=== PATIENT | female | born 1975 | race Caucasian/White ===

== ENCOUNTER → 2022-05-12 09:11 | Outpatient (CLI) | payer MEDICARE, MEDICAID, SELFPAY ==
--- NOTE | 2022-05-12 09:17 | DI.MRI.S_ITS ---
PROCEDURE: MR HEAD/BRAIN WO/W CON INDICATIONS: LEFT BREAST CANCER TECHNIQUE: Noncontrast axial T1 spin echo, axial T2 fast spin echo, sagittal and axial FLAIR, coronal T2 fast spin echo, axial gradient echo, axial diffusion and ADC through the brain. After the administration of contrast, axial and coronal and sagittal 3D VIBE or T1 spin echo with fat saturation through the brain. COMPARISON: None. FINDINGS: Image quality: Excellent. CSF Spaces: Basal cisterns are patent. No extra-axial fluid collections. Ventricles are normal in size and shape. Brain: No midline shift. No intracranial bleeds or masses. No abnormal intracranial enhancement. The brainstem appears normal. Diffusion-weighted images demonstrate no acute ischemic insults. No chronic ischemic insults. Normal intravascular flow voids are present. Skull and face: Calvarial marrow is normal in signal. Orbits appear normal. Sinuses: Sinuses and mastoids appear clear. IMPRESSION: No masses or abnormal enhancement can be seen. Dictated by: Jose Hernández M.D. on 05/12/2022 at 9:49 Approved by: Jose Hernández M.D. on 05/12/2022 at 9:53
== END ==
PROVIDERS: Referring Provider Internal Medicine Medical Oncology; Visit Provider Internal Medicine Medical Oncology
DX: C50.912 Malignant neoplasm of unspecified site of left female breast; Z17.0 Estrogen receptor positive status [ER+]; C79.51 Secondary malignant neoplasm of bone
CPT/HCPCS: 70553

== ENCOUNTER → 2022-05-17 07:32 | Outpatient (CLI) | payer MEDICARE, MEDICAID, SELFPAY ==
--- NOTE | 2022-05-17 | DI.NM.S_ITS ---
PROCEDURE: NM BONE SCAN WHOLE BODY RADIOPHARMACEUTICAL: 21 mCi Tc-99m MDP IV. INDICATIONS: LEFT BREAST CANCER TECHNIQUE: Delayed whole-body scintigrams were obtained approximately 3-4 hours after intravenous injection of radiotracer. Anterior and posterior views were acquired from vertex to feet. COMPARISON: [facility], CT, CT CHEST ABD PEL W CON, 05/17/2022, 8:36. FINDINGS: Diffuse intense uptake in the region of the right shoulder corresponding to permeative scapular lesion seen on CT with soft tissue component. Focal uptake in the T2 vertebral body corresponding to lytic lesion on CT. Likely degenerative uptake is seen at various joints, around the upper sternum, and contralateral shoulder. Normal expected radiotracer excretion is seen in the urinary system. IMPRESSION: Radiotracer uptake in the permeative lesion of the right shoulder, involving the entire scapula on CT. There is an additional lytic lesion at T2. Dictated by: Clarence Hayden M.D. on 05/17/2022 at 14:09 Approved by: Clarence Hayden M.D. on 05/17/2022 at 14:17
--- NOTE | 2022-05-17 | DI.CT.S_ITS ---
PROCEDURE: CT CHEST ABD PEL W CON INDICATIONS: LEFT BREAST CANCER TECHNIQUE: After the administration of oral and intravenous contrast, axial sections acquired from the supraclavicular neck to the pubic symphysis. Coronal and sagittal reformats were performed. For radiation dose reduction, the following was used: automated exposure control, adjustment of mA and/or kV according to patient size. COMPARISON: None. FINDINGS: Image quality: Excellent. CHEST: Lower Neck: No enlarged lymph nodes. Thyroid: Unremarkable Axillae: No axillary adenopathy. Chest Wall: Left breast biopsy clip and mass. There is atrophy of the right rotator cuff muscles. Permeative destructive lesion of the scapula involving almost the whole bone is present, with soft tissue component seen more superiorly adjacent to the coracoid and glenohumeral joint. Lungs and Airways: Atelectasis/scarring. No dense consolidation. Micro nodules, for example 6/108 on the right. Pleura: No pneumothorax or pleural effusions. Heart: Heart size is normal. No pericardial effusion. Thoracic Vessels: The aorta and pulmonary arteries demonstrate normal size. Mediastinum and Kalina: No enlarged lymph nodes. Esophagus: Small hiatal hernia and distal esophageal wall thickening. ABDOMEN: Liver: Suspected steatosis. Subcentimeter lesions are too small to characterize. Gallbladder: Unremarkable Biliary ducts: Nondilated Pancreas: Unremarkable. Spleen: Unremarkable. Adrenal Glands: Unremarkable. Kidneys and Ureters: No hydronephrosis. Stomach and Bowel: Nondilated Peritoneum: No pathologic ascites. Ventral Wall: Tiny fat containing umbilical hernia Abdominal Nodes: No retroperitoneal or mesenteric adenopathy by size criteria. Vessels: Aorta and inferior vena cava are normal in size. PELVIS: Pelvic Organs: Hysterectomy Bladder: Unremarkable. Pelvic Nodes: No enlarged lymph nodes. Miscellaneous: No significant findings. Bones: Right scapular lesion as above. Bone scan findings are separately dictated. IMPRESSION: Breast cancer staging. Permeative, extensive right scapular lesion with small soft tissue component superiorly. Associated right rotator cuff atrophy. No other evidence of metastatic disease in the chest, abdomen, or pelvis. Pulmonary micro nodules can be followed on subsequent imaging. Bone scan findings are separately dictated Dictated by: Clarence Hayden M.D. on 05/17/2022 at 10:57 Approved by: Clarence Hayden M.D. on 05/17/2022 at 11:05
== END ==
PROVIDERS: Referring Provider Internal Medicine Medical Oncology; Visit Provider Internal Medicine Medical Oncology
DX: C50.912 Malignant neoplasm of unspecified site of left female breast (principal); C79.51 Secondary malignant neoplasm of bone; R91.8 Other nonspecific abnormal finding of lung field; K44.9 Diaphragmatic hernia without obstruction or gangrene; Z17.0 Estrogen receptor positive status [ER+]; Z90.710 Acquired absence of both cervix and uterus
CPT/HCPCS: 71260; 74177; 78306; A9503; Q9967

== ENCOUNTER 2023-08-26 14:54 | Inpatient (IN) | payer MEDICARE, MEDICAID, SELFPAY ==
[2023-08-26] VITALS (7 sets, daily range): PULSE 66–105; RESP 14–28; TEMP 35.5–36.7; O2SAT 95–99; BMI 31.8
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
[2023-08-26] MEDS: diazePAM 10 MG/2 ML SYRINGE 5 MG IM ×2 (15:32→20:19)
--- NOTE | 2023-08-26 15:45 | PC.NURSE ---
Multiple attempts at an IV by APURVA Boucher failed. meds changed to IM and given. Verbal order from Aleksandar. Still unable to obtain BP in any extremities, and even unable to obtain manual BP, attempts by multiple RN's. AT this time the plan is to make patient warm and comfortable, comfort care only.
--- NOTE | 2023-08-26 16:00 | PC.NURSE ---
US IV attempted unsuccessful.
--- NOTE | 2023-08-26 16:10 | PC.NURSE ---
Pt revoked hospice today. h/o metastatic breast cancer. Responsive to pain. Positioned for comfort on right side. Mother and daughter are at bedside and are aware of the grave nature of her condition. Medicated w/ valium im as pt is allergic (anaphalaxis) to all narcotics per report. Family is resistant to attempting any narcotics for fear of previous reactions. IV attempts have failed, will attempt US guided IV when pt appears more comfortable after valium has taken affect. Family verbalized understanding of this plan w/ agreement. No monitoring as pt is comfort measures only
[2023-08-26] MEDS: HALOPERIDOL 5 MG/ML VIAL IM (17:40)
[2023-08-26] MEDS: ONDANSETRON 4 MG ODT PO (20:13)
[2023-08-26] MEDS: OLANZapine ODT 10 MG TAB PO (20:20)
[2023-08-26] MEDS: LORazepam 2 MG/ML ORAL SOL PO ×2 (20:21→21:15)
[2023-08-26] MEDS: MORPHINE 10 MG/ML INJ 5 MG IM (20:21)
[2023-08-26] MEDS: HYDROMORPHONE 2 MG INJ SUBCUT (21:15)
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
--- NOTE | 2023-08-27 00:10 | PC.NURSE ---
Patient was admitted to room 205 towards the end of day shift with uncontrolled back and generalized pain. Patient crying, restless, does not answer questions. Mom at bedside and supportive. Dr Schneider was here to assess patient and write orders. Morhine 5 mg IM and Valium 5 mg IM x1 dose both given as ordered along with Zyprexa and Ativan. Zofran given first to help prevent nausea. Patient calmed down after meds given. Hydromorphone 2 mg SQ and a second dose of Ativan 2 mg PO given before patient fell asleep. Patient appears comfortable at this time. Unable to do full skin assessment, patient's mom refused due to discomfort to patient. Mottling noted to BLE. Skin to buttocks red, intact. Skin to groin red and excoriated with scant bleeding. Unable to assess full extent of excoriation. Vaginal bleeding noted, appears to be menstrual however pt's mom states pt is postmenopausal. Patient's mom declined urinary catheter at this time.
[2023-08-27 04:20] VITALS: RESP 10
[2023-08-27] MEDS: HYDROMORPHONE 2 MG INJ SUBCUT (04:24)
--- NOTE | 2023-08-27 05:18 | PC.NURSE ---
0424: RR=10. Hydromorphone 2 mg SQ given for mild restlessness. Patient's mom is a retired RN and is at bedside and wanted privacy. 0500: Patient's mom called RN and stated patient stopped breathing at 0445. RR = 0, no heart sounds. RN coordinator BINTA notified and checked patient and spoke with patient's mom. 0508: Dr Wood notified that patient .
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
--- NOTE | 2023-08-27 09:13 | PC.NURSE ---
Day shift: home transport person here and has taken the . Left the room/unit at approx 0920. Family remains aware of the plan. No personal belongings in room. Appropriate paperwork signed and in chart.
--- NOTE | 2023-08-27 09:24 | PC.NURSE ---
This RN raised head of bed to 15 degrees and placed salene drops in each eye and then placed paper tape over each eye after family left at 0730. Shannon picked up patient at 0926.
== END 2023-08-27 09:45 | disposition expired | DRG 948 ==
LOC: ED 15:05 → AC 18:08
PROVIDERS: Admitting Provider Family Medicine; Emergency Provider Emergency Medicine; Referring Provider Emergency Medicine; Visit Provider Family Medicine
DX: G89.3 Neoplasm related pain (acute) (chronic) (principal); C78.7 Secondary malignant neoplasm of liver and intrahepatic bile duct; C50.911 Malignant neoplasm of unspecified site of right female breast; K72.90 Hepatic failure, unspecified without coma; T68.XXXA Hypothermia, initial encounter; R57.9 Shock, unspecified; Z51.5 Encounter for palliative care; X31.XXXA Exposure to excessive natural cold, initial encounter
CPT/HCPCS: 93005; 96372; 99283; 99285; G0378; J1170; J1630; J2270; J3360